=== PATIENT | male | born 1965 | race Caucasian/White ===

== ENCOUNTER 2018-02-27 10:42 | Emergency (ER) | payer OTHER ==
--- NOTE | 2018-02-27 12:19 | ED Physician Documentation ---
PD HPI ABD PAIN - Stated complaint Stated Complaint: RT SIDE PX - Chief complaint Chief Complaint: Back Pain - History obtained from History obtained from: Patient - History of Present Illness Timing - onset: Today (at 0730 had RLQ pain radiating to low back on the right. Feels like stabbing. Assoc with nausea and vomiting x1. No urinary or bowel sx. Had chills. Improved with standing, worse with sitting.) Review of Systems Constitutional: reports: Chills, Sweats. denies: Fever Eyes: reports: Reviewed and negative Nose: reports: Reviewed and negative Cardiac: reports: Reviewed and negative Respiratory: reports: Reviewed and negative GI: reports: Abdominal Pain, Nausea, Vomiting. denies: Constipation, Diarrhea, Hematemesis PD PAST MEDICAL HISTORY - Past Medical History Past Medical History: Yes Cardiovascular: Hypertension Endocrine/Autoimmune: Type 2 diabetes - Present Medications Home Medications: Ambulatory Orders Medication Instructions Recorded Confirmed Meloxicam [Mobic] 7.5 mg PO BIDWM PRN #15 tablet 02/27/18 Oxycodone HCl/Acetaminophen 1 - 2 tab PO Q4H PRN #15 tablet 02/27/18 [Percocet 5-325 mg Tablet] Tamsulosin [Flomax] 0.4 mg PO DAILY #14 capsule 02/27/18 - Allergies Allergies/Adverse Reactions: Allergies Allergy/AdvReac Type Severity Reaction Status Date / Time codeine AdvReac Severe Anaphylaxis Verified 02/27/18 12:27 - Family History Family history: reports: Non contributory PD ED PE NORMAL - Vitals Vital signs reviewed: Yes - General General: Alert and oriented X 3, Other (appears uncomfortable, sweaty) - HEENT HEENT: PERRL, EOMI - Neck Neck: Supple, no meningeal sign, No bony TTP - Cardiac Cardiac: RRR, No murmur - Respiratory Respiratory: No respiratory distress, Clear bilaterally - Abdomen Abdomen: Normal bowel sounds, Soft, Other (TTP RUQ) - Back Back: No CVA TTP, No spinal TTP - Derm Derm: Normal color, Warm and dry - Extremities Extremities: No edema, No calf tenderness / cord - Neuro Neuro: Alert and oriented X 3, Normal speech - Psych Psych: Normal mood, Normal affect Results - Vitals Vitals: Vital Signs - 24 hr 02/27/18 02/27/18 11:00 12:16 Temperature 29.5 C L 34.5 C L Heart Rate 50 L 52 L Respiratory 20 16 Rate Blood Pressure 121/68 137/78 H O2 Saturation 98 99 Oxygen O2 Source Room air - Labs Labs: Laboratory Tests 02/27/18 02/27/18 02/27/18 12:15 12:47 12:47 WBC 8.1 RBC 4.71 Hgb 14.2 Hct 41.7 L MCV 88.5 MCH 30.1 MCHC 34.0 RDW 13.4 Plt Count 227 MPV 6.8 L Neut # 6.8 H Lymph # 0.7 L [place] # 0.5 Eos # 0.1 Baso # 0.0 Absolute Nucleated RBC 0.00 Nucleated RBC % 0.0 Sodium 138 Potassium 4.3 Chloride 101 Carbon Dioxide 27 Anion Gap 10.0 BUN 19 Creatinine 0.9 Estimated GFR (MDRD) 89 Glucose 170 H POC Whole Bld Glucose 151 H Calcium 9.2 Total Bilirubin 0.7 AST 27 ALT 31 Alkaline Phosphatase 55 Total Protein 7.8 Albumin 4.6 Globulin 3.2 Albumin/Globulin Ratio 1.4 Lipase 25 Urine Color Urine Clarity Urine pH Ur Specific [place] Urine Protein Urine Glucose (UA) Urine Ketones Urine Occult Blood Urine Nitrite Urine Bilirubin Urine Urobilinogen Ur Leukocyte Esterase Ur Microscopic Review Urine Culture Comments 02/27/18 14:26 WBC RBC Hgb Hct MCV MCH MCHC RDW Plt Count MPV Neut # Lymph # [place] # Eos # Baso # Absolute Nucleated RBC Nucleated RBC % Sodium Potassium Chloride Carbon Dioxide Anion Gap BUN Creatinine Estimated GFR (MDRD) Glucose POC Whole Bld Glucose Calcium Total Bilirubin AST ALT Alkaline Phosphatase Total Protein Albumin Globulin Albumin/Globulin Ratio Lipase Urine Color YELLOW Urine Clarity CLEAR Urine pH 6.0 Ur Specific [place] 1.025 Urine Protein NEGATIVE Urine Glucose (UA) NEGATIVE Urine Ketones NEGATIVE Urine Occult Blood MODERATE H Urine Nitrite NEGATIVE Urine Bilirubin NEGATIVE Urine Urobilinogen 0.2 (NORMAL) Ur Leukocyte Esterase NEGATIVE Ur Microscopic Review INDICATED Urine Culture Comments Not Reportable - Rads (name of study) CT KUB Radiology: EMP read contemporaneously (1 x 3 mm right proximal ureteral stone with hydronephrosis.) PD MEDICAL DECISION MAKING - ED course ED course: 52-year-old gentleman with acute onset pain consistent with renal colic which is proven on CT. Pain improved after morphine and gone after Toradol. Departure - Departure Disposition: 01 Home, Self Care Clinical Impression: Renal colic on right side Condition: Good Record reviewed to determine appropriate education?: Yes Instructions: ED Stone Renal W Colic Prescriptions: Meloxicam [Mobic] 7.5 mg PO BIDWM PRN #15 tablet PRN Reason: Pain Oxycodone HCl/Acetaminophen [Percocet 5-325 mg Tablet] 1 - 2 tab PO Q4H PRN #15 tablet PRN Reason: Pain Tamsulosin [Flomax] 0.4 mg PO DAILY #14 capsule Comments: Call your doctor to arrange a follow-up appointment, make the next available appointment. In the interim, return anytime if worse or if new symptoms develop. Do not drink or drive while taking narcotic pain medication. Note that many narcotic pain relievers also contain Tylenol/acetaminophen. Please ensure that your total dose of acetaminophen from all sources does not exceed 3 g (3000 mg) per day. You may get constipated while on this medication. Take a stool softener such as Colace twice a day while you are on it. Also add an [id number] laxative such as senna or MiraLAX on any day that you do not have a bowel movement. If you received a narcotic pain medication or sedative while in the emergency department, do not drive for the next 24 hours. Your blood pressure was elevated today on check into the emergency department. This does not mean that you have hypertension, it is a common phenomenon to come to the emergency department and have elevated blood pressure. I recommend that you see your primary care physician within the week to have it rechecked when you are feeling better.
[2018-02-27] MEDS ORDERED: MORPHINE 10 MG/ML VIAL IVP STA (12:22)
[2018-02-27] MEDS ORDERED: ONDANSETRON 4 MG/2 ML VIAL IVP STA (12:23)
[2018-02-27] MEDS ORDERED: HYDROmorphone 2 MG/ML VIAL IVP STA (12:26)
[2018-02-27 12:56] LABS: BASOPHILS % (AUTO) 0.3 %; EOSINOPHILS # (AUTO) 0.1 10^3/uL (0.0-0.7); EOSINOPHILS % (AUTO) 1.2 %; HGB - HEMOGLOBIN 14.2 g/dL (14.0-18.0); LYMPHOCYTES # (AUTO) 0.7 10^3/uL (1.5-3.5); LYMPHOCYTES % (AUTO) 8.1 %; MEAN CORPUSCULAR HEMOGLOBIN 30.1 pg (27.0-31.0); MEAN CORPUSCULAR VOLUME 88.5 fL (80.0-94.0); MEAN PLATELET VOLUME 6.8 fL (7.4-11.4); MONOCYTES # (AUTO) 0.5 10^3/uL (0.0-1.0); MONOCYTES % (AUTO) 6.7 %; NEUTROPHILS # (AUTO) 6.8 10^3/uL (1.5-6.6); NEUTROPHILS % (AUTO) 83.7 %; PLT - PLATELET COUNT 227 10^3/uL (130-450); RED BLOOD COUNT 4.71 10^6/uL (4.70-6.10); RED CELL DISTRIBUTION WIDTH 13.4 % (12.0-15.0); WHITE BLOOD COUNT 8.1 x10^3/uL (4.8-10.8)
[2018-02-27 13:05] LABS: ALBUMIN 4.6 g/dL (3.2-5.5); ALBUMIN/GLOBULIN RATIO 1.4 (1.0-2.2); BILIRUBIN,TOTAL 0.7 mg/dL (0.2-1.0); CALCIUM 9.2 mg/dL (8.5-10.3); CREATININE 0.9 mg/dL (0.6-1.2); TOTAL PROTEIN 7.8 g/dL (6.7-8.2)
[2018-02-27] MEDS ORDERED: KETOROLAC 60 MG/2 ML VIAL IVP STA (13:33)
--- NOTE | 2018-02-27 14:06 | CT Preliminary Report ---
Exam: CT ABDOMEN/PELVIS W/O IMPRESSION: 1. 1 x 3 mm stone proximal right ureter causing mild obstruction. 2. Left nephrolithiasis. 3. Appendectomy. [facility] SITE ID: [id number]
--- NOTE | 2018-02-27 14:17 | CT Report ---
EXAM: CT ABDOMEN AND PELVIS WITHOUT CONTRAST. EXAM DATE: 02/27/2018 01:23 PM. CLINICAL HISTORY: Right flank pain. COMPARISONS: None. TECHNIQUE: Routine helical CT imaging was performed through the abdomen and pelvis. IV contrast: None . Enteric contrast: No. Reconstructions: Coronal and sagittal. In accordance with CT protocol optimization, one or more of the following dose reduction techniques w ere utilized for this exam: automated exposure control, adjustment of mA and/or KV based on patient s ize, or use of iterative reconstructive technique. FINDINGS: Lung Bases: Unremarkable. Liver: Normal. No masses. Gallbladder/Bile Ducts: Unremarkable. Spleen: Normal. Pancreas: Normal. Adrenal Glands: Normal. Kidneys: 1 x 3 mm stone proximal right ureter at the level L2-L3. Mild right hydronephrosis. Mild right peripe lvic and perirenal edema. Moderate periureteral edema at the level of the stone and mild dilatation s uperiorly. Inferior to the right ureteral stone, right ureter is tiny without additional stones. Several 4 mm and smaller stones in the inferior left calyceal system. No left hydronephrosis. Left ur eter is normal. No renal mass lesions. Peritoneal Cavity/Bowel: Normal. No free fluid, free air or adenopathy. No masses or acute inflammato ry process. Appendectomy. Pelvic Organs: Surgical clips left groin, lateral to the inguinal canal. The bladder and visualized p elvic organs are within normal limits. Vasculature: No aneurysms or other significant abnormality. Bones: No significant abnormality. Other: None. IMPRESSION: 1. 1 x 3 mm stone proximal right ureter causing mild obstruction. 2. Left nephrolithiasis. 3. Appendectomy. [facility] Referring Provider Line: [phone] SITE ID: [id number]
[2018-02-27 14:34] LABS: BILIRUBIN,URINE NEGATIVE (NEGATIVE); GLUCOSE, URINE (UA) NEGATIVE (NEGATIVE); KETONES,URINE (UA) NEGATIVE (NEGATIVE); LEUKOCYTE ESTERASE, URINE NEGATIVE (NEGATIVE); NITRITE,URINE NEGATIVE (NEGATIVE); OCCULT BLOOD,URINE MODERATE (NEGATIVE); PROTEIN,URINE NEGATIVE (NEGATIVE); UROBILINOGEN,URINE 0.2 (NORMAL) E.U./dL (NORMAL)
[2018-02-27 14:35] LABS: CLARITY,URINE CLEAR (CLEAR)
[2018-02-27 14:55] LABS: RBC,URINE TNTC /HPF (0-5); SQUAMOUS EPITHELIAL CELL,UR NONE SEEN (<= Few)
[2018-02-27 14:56] LABS: BACTERIA,URINE None Seen /HPF (None Seen); CRYSTALS,URINE 0-2 Calcium Oxalate /LPF; MUCUS,URINE Few Strands
[2018-02-27 14:59] VITALS: BP 108/70
== END 2018-02-27 15:05 | disposition home or self-care (01) ==
LOC: ED 10:42
DX: N20.2 Calculus of kidney with calculus of ureter (principal); I10 Essential (primary) hypertension; E11.9 Type 2 diabetes mellitus without complications
CPT/HCPCS: 36415; 74176; 80053; 81001; 83690; 85025; 96374; 96375; 99283; 99284; J1170; 81003; 87086

== ENCOUNTER 2019-10-14 17:18 | Emergency (ER) | payer OTHER ==
[2019-10-14 17:45] LABS: BILIRUBIN,URINE NEGATIVE (NEGATIVE); GLUCOSE, URINE (UA) NEGATIVE (NEGATIVE); KETONES,URINE (UA) NEGATIVE (NEGATIVE); LEUKOCYTE ESTERASE, URINE NEGATIVE (NEGATIVE); NITRITE,URINE NEGATIVE (NEGATIVE); OCCULT BLOOD,URINE LARGE (NEGATIVE); PROTEIN,URINE TRACE mg/dL (NEGATIVE); UROBILINOGEN,URINE 1 (NORMAL) E.U./dL (NORMAL)
--- NOTE | 2019-10-14 17:47 | ED Physician Documentation ---
History of Present Illness - Stated complaint Stated Complaint: BLOOD IN URINE - Chief complaint Chief Complaint: General - Additonal information Additional information: This is a 54-year-old female with a history of diabetes who presents with blood in his urine. He has no abdominal pain, no dysuria, no fever, no difficulty urinating, no other symptoms. This began this morning, and has had multiple episodes of bart blood in his urine throughout the day. At times it will clear up to a light pink. He has never had this before. He has never had urinary problems in the past, no history of stones. Review of Systems Constitutional: denies: Fever Nose: denies: Rhinorrhea / runny nose Cardiac: denies: Chest pain / pressure Respiratory: denies: Dyspnea GI: denies: Abdominal Pain : reports: Hematuria Neurologic: denies: Generalized weakness PD PAST MEDICAL HISTORY - Past Medical History Cardiovascular: Hypertension Endocrine/Autoimmune: Type 2 diabetes - Present Medications Home Medications: Ambulatory Orders Medication Instructions Recorded Confirmed Meloxicam [Mobic] 7.5 mg PO BIDWM PRN #15 tablet 02/27/18 Oxycodone HCl/Acetaminophen 1 - 2 tab PO Q4H PRN #15 tablet 02/27/18 [Percocet 5-325 mg Tablet] Tamsulosin [Flomax] 0.4 mg PO DAILY #14 capsule 02/27/18 Ondansetron Odt [Zofran] 4 mg TL Q6H PRN #10 tablet 10/14/19 Oxycodone HCl/Acetaminophen 1 each PO Q6H PRN #7 tablet 10/14/19 [Percocet 5-325 mg Tablet] Tamsulosin [Flomax] 0.4 mg PO DAILY #14 capsule 10/14/19 - Allergies Allergies/Adverse Reactions: Allergies Allergy/AdvReac Type Severity Reaction Status Date / Time codeine AdvReac Severe Anaphylaxis Verified 10/14/19 17:21 PD ED PE NORMAL - Vitals Vital signs reviewed: Yes - General General: Alert and oriented X 3, No acute distress - HEENT HEENT: PERRL - Neck Neck: Supple, no meningeal sign - Cardiac Cardiac: RRR - Respiratory Respiratory: No respiratory distress, Clear bilaterally - Abdomen Abdomen: Normal bowel sounds, Soft, Non tender, Non distended - Male Male : Other (Penis is circumcised, normal in appearance, no active bleeding, no testicular tenderness, no lesions) - Derm Derm: Warm and dry - Extremities Extremities: No deformity - Neuro Neuro: Alert and oriented X 3 - Psych Psych: Normal mood, Normal affect Results - Vitals Vitals: Vital Signs - 24 hr 10/14/19 10/14/19 17:22 19:35 Temperature 36.5 C 36.7 C Heart Rate 91 77 Respiratory 16 17 Rate Blood Pressure 128/71 125/82 H O2 Saturation 96 94 Oxygen O2 Source Room air - Labs Labs: Laboratory Tests 10/14/19 10/14/19 10/14/19 17:40 17:59 17:59 WBC 10.2 RBC 4.82 Hgb 14.8 Hct 42.7 MCV 88.6 MCH 30.7 MCHC 34.7 RDW 12.7 Plt Count 334 MPV 8.2 Neut # (Auto) 6.8 H Lymph # (Auto) 2.3 [place] # (Auto) 0.8 Eos # (Auto) 0.2 Baso # (Auto) 0.1 Absolute Nucleated RBC 0.00 Nucleated RBC % 0.0 Sodium 138 Potassium 3.6 Chloride 101 Carbon Dioxide 23 Anion Gap 14.0 H BUN 24 H Creatinine 0.7 Estimated GFR (MDRD) 118 Glucose 115 H Calcium 9.8 Total Bilirubin 0.5 AST 32 ALT 52 Alkaline Phosphatase 61 Total Protein 7.8 Albumin 4.7 Globulin 3.1 Albumin/Globulin Ratio 1.5 Lipase 28 Urine Color DARK YELLOW Urine Clarity CLOUDY Urine pH 7.0 Ur Specific [place] 1.020 Urine Protein TRACE Urine Glucose (UA) NEGATIVE Urine Ketones NEGATIVE Urine Occult Blood LARGE H Urine Nitrite NEGATIVE Urine Bilirubin NEGATIVE Urine Urobilinogen 1 (NORMAL) Ur Leukocyte Esterase NEGATIVE Urine RBC TNTC H Urine WBC 0-3 Ur Squamous Epith Cells NONE SEEN Urine Bacteria None Seen Ur Microscopic Review INDICATED Urine Culture Comments NOT INDICATED - Rads (name of study) CT abd/pelvis Radiology: Other (Nonobstructing 4 mm stone in the left ureteropelvic junction, inferior left kidney 1 and 2 mm nonobstructing calyceal stones) PD MEDICAL DECISION MAKING - ED course Complexity details: considered differential (Infection, mass, malignancy, stone, urethritis) ED course: On arrival patient is well-appearing, his abdomen is completely nontender, and he is asymptomatic. His urine has gross hematuria, his urinalysis shows too many red blood cells to count, no white blood cells or signs of infection. His CBC is unremarkable, and his CMP is unremarkable as well, with a normal creatinine. CT scan of his abdomen/pelvis was performed with contrast to assess for malignancy or other cause of his bleeding, and it shows a nonobstructing 4 mm stone in the left ureteropelvic junction. This appears to be the likely cause of his bleeding, and appears it is not causing him pain. I discussed this result with him and the fact that he probably will have some symptoms as he passed the stone, I discussed pain management, nausea management, fluids, and follow-up. I also discussed return precautions including any fever, inability to urinate, or other concerning symptoms. Patient agreed and was discharged home. Departure - Departure Disposition: 01 Home, Self Care Clinical Impression: Kidney stone Condition: Good Prescriptions: Ondansetron Odt [Zofran] 4 mg TL Q6H PRN #10 tablet PRN Reason: Nausea / Vomiting Oxycodone HCl/Acetaminophen [Percocet 5-325 mg Tablet] 1 each PO Q6H PRN #7 tablet PRN Reason: pain Tamsulosin [Flomax] 0.4 mg PO DAILY #14 capsule Comments: You have a 4 mm stone in your left ureter, which is the likely cause of your bleeding in your urine. You may pass the stone, and as it moves it could cause significant pain. You may use ibuprofen and that is not effective Percocet for pain. I am also prescribing you some Zofran for nausea in case you develop nausea and vomiting. You should follow-up with your primary care provider to ensure that you are not having continued blood in your urine after the stone is passed. If you are having worsening symptoms such as severe abdominal pain not controlled by medications, fever, inability to urinate or any other concerning symptoms return to the emergency department. Your CT scan did show a little bit of fatty liver, please review this finding with your primary care provider. Discharge Date/Time: 10/14/19 19:38
[2019-10-14 17:51] LABS: CLARITY,URINE CLOUDY (CLEAR)
[2019-10-14 17:52] LABS: BACTERIA,URINE None Seen /HPF (None Seen); RBC,URINE TNTC /HPF (0-5); SQUAMOUS EPITHELIAL CELL,UR NONE SEEN (<= Few)
[2019-10-14 18:03] LABS: BASOPHILS # (AUTO) 0.1 10^3/uL (0.0-0.1); BASOPHILS % (AUTO) 0.9 %; EOSINOPHILS # (AUTO) 0.2 10^3/uL (0.0-0.7); EOSINOPHILS % (AUTO) 1.6 %; HGB - HEMOGLOBIN 14.8 g/dL (14.0-18.0); LYMPHOCYTES # (AUTO) 2.3 10^3/uL (1.5-3.5); LYMPHOCYTES % (AUTO) 22.7 %; MEAN CORPUSCULAR HEMOGLOBIN 30.7 pg (27.0-31.0); MEAN CORPUSCULAR HGB CONC 34.7 g/dL (32.0-36.0); MEAN CORPUSCULAR VOLUME 88.6 fL (80.0-94.0); MEAN PLATELET VOLUME 8.2 fL (7.4-11.4); MONOCYTES # (AUTO) 0.8 10^3/uL (0.0-1.0); MONOCYTES % (AUTO) 7.7 %; NEUTROPHILS # (AUTO) 6.8 10^3/uL (1.5-6.6); NEUTROPHILS % (AUTO) 66.6 %; PLT - PLATELET COUNT 334 10^3/uL (130-450); RED BLOOD COUNT 4.82 10^6/uL (4.70-6.10); RED CELL DISTRIBUTION WIDTH 12.7 % (12.0-15.0); WHITE BLOOD COUNT 10.2 x10^3/uL (4.8-10.8)
[2019-10-14 18:17] LABS: ALBUMIN 4.7 g/dL (3.2-5.5); ALBUMIN/GLOBULIN RATIO 1.5 (1.0-2.2); BILIRUBIN,TOTAL 0.5 mg/dL (0.2-1.0); CALCIUM 9.8 mg/dL (8.5-10.3); CREATININE 0.7 mg/dL (0.6-1.2); TOTAL PROTEIN 7.8 g/dL (6.7-8.2)
[2019-10-14] MEDS ORDERED: IOVERSOL 320 100 ML VIAL IVP ONE ×2 (18:23→18:43)
--- NOTE | 2019-10-14 19:13 | CT Report ---
Reason: gross hematuria Procedure Date: 10/14/2019 Accession Number: [id number] / [id number] Procedure: CT - Abdomen/Pelvis W CPT Code: Final Report FULL RESULT: EXAM: CT ABDOMEN AND PELVIS EXAM DATE: 10/14/2019 06:41 PM. CLINICAL HISTORY: Gross hematuria. COMPARISONS: ABDOMEN/PELVIS W/O 02/27/2018 1:19 PM. TECHNIQUE: Routine helical CT imaging was performed through the abdomen and pelvis. IV contrast: OPTI 320 100ML. Enteric contrast: No. Reconstructions: Coronal and sagittal. In accordance with CT protocol optimization, one or more of the following dose reduction techniques were utilized for this exam: automated exposure control, adjustment of mA and/or KV based on patient size, or use of iterative reconstructive technique. FINDINGS: Lung Bases: Fatty infiltration of the liver. The liver is negative for focal mass or intrahepatic biliary dilatation. Liver: Fatty infiltration of the liver. The liver is negative for focal mass or intrahepatic biliary dilatation. Gallbladder/Bile Ducts: Unremarkable. Spleen: Normal. Pancreas: Normal. Adrenal Glands: Normal. Kidneys: Left kidney 2 mm nonobstructing calyceal stone. Inferior left kidney 1 mm calyceal stone. Focal scar superior lateral right kidney. 4 mm stone left ureteropelvic junction. Negative for hydroureter. Negative for obstructing ureteral stone. Peritoneal Cavity/Bowel: Normal. No free fluid, free air or adenopathy. No masses or acute inflammatory process. The appendix is well visualized and normal. Pelvic Organs: Normal. The bladder and visualized pelvic organs are within normal limits. Vasculature: No aneurysms or other significant abnormality. Bones: No significant abnormality. Other: Moderate bilateral inguinal hernias containing fat. IMPRESSION: 1. Nonobstructing 4 mm stone left ureteropelvic junction. 2. Inferior left kidney 1 mm and 2 mm nonobstructing calyceal stones. [facility]
[2019-10-14 19:36] VITALS: BP 125/82
== END 2019-10-14 19:38 | disposition home or self-care (01) ==
LOC: ED 17:18
DX: N20.2 Calculus of kidney with calculus of ureter (principal); R31.0 Gross hematuria; I10 Essential (primary) hypertension; E11.9 Type 2 diabetes mellitus without complications
CPT/HCPCS: 36415; 74177; 80053; 81001; 83690; 85025; 99283; 99284; Q9967; 81003; 87086

== ENCOUNTER 2020-03-30 08:39 | Emergency (ER) | payer OTHER ==
[2020-03-30 09:39] LABS: BILIRUBIN,URINE NEGATIVE (NEGATIVE); GLUCOSE, URINE (UA) NEGATIVE (NEGATIVE); KETONES,URINE (UA) NEGATIVE (NEGATIVE); LEUKOCYTE ESTERASE, URINE NEGATIVE (NEGATIVE); NITRITE,URINE NEGATIVE (NEGATIVE); OCCULT BLOOD,URINE LARGE (NEGATIVE); PH,URINE 5.5 PH (5.0-7.5); PROTEIN,URINE NEGATIVE (NEGATIVE); UROBILINOGEN,URINE 0.2 (NORMAL) E.U./dL (NORMAL)
[2020-03-30 09:57] LABS: BASOPHILS # (AUTO) 0.1 10^3/uL (0.0-0.1); BASOPHILS % (AUTO) 0.5 %; EOSINOPHILS # (AUTO) 0.1 10^3/uL (0.0-0.7); EOSINOPHILS % (AUTO) 0.6 %; HGB - HEMOGLOBIN 14.5 g/dL (14.0-18.0); LYMPHOCYTES # (AUTO) 1.2 10^3/uL (1.5-3.5); LYMPHOCYTES % (AUTO) 10.9 %; MEAN CORPUSCULAR HEMOGLOBIN 31.1 pg (27.0-31.0); MEAN CORPUSCULAR HGB CONC 34.3 g/dL (32.0-36.0); MEAN CORPUSCULAR VOLUME 90.8 fL (80.0-94.0); MEAN PLATELET VOLUME 8.8 fL (7.4-11.4); MONOCYTES # (AUTO) 0.6 10^3/uL (0.0-1.0); MONOCYTES % (AUTO) 5.8 %; NEUTROPHILS # (AUTO) 8.9 10^3/uL (1.5-6.6); PLT - PLATELET COUNT 254 10^3/uL (130-450); RED BLOOD COUNT 4.66 10^6/uL (4.70-6.10); RED CELL DISTRIBUTION WIDTH 13.2 % (12.0-15.0); WHITE BLOOD COUNT 10.9 x10^3/uL (4.8-10.8)
[2020-03-30 09:59] LABS: CLARITY,URINE CLEAR (CLEAR)
[2020-03-30 10:09] LABS: BACTERIA,URINE Rare /HPF (None Seen); SQUAMOUS EPITHELIAL CELL,UR NONE SEEN (<= Few)
[2020-03-30 10:11] LABS: ALBUMIN 4.9 g/dL (3.2-5.5); ALBUMIN/GLOBULIN RATIO 1.7 (1.0-2.2); BILIRUBIN,TOTAL 0.4 mg/dL (0.2-1.0); CALCIUM 9.3 mg/dL (8.5-10.3); TOTAL PROTEIN 7.8 g/dL (6.7-8.2)
[2020-03-30] MEDS ORDERED: SODIUM CHLORIDE 0.9% 1,000 ML IV STA (10:19)
[2020-03-30] MEDS ORDERED: HYDROmorphone 1 MG/ML CARPUJECT IVP STA (10:19)
[2020-03-30] MEDS ORDERED: KETOROLAC 30 MG/ML VIAL IVP STA (10:19)
--- NOTE | 2020-03-30 11:21 | ED Physician Documentation ---
History of Present Illness - Stated complaint Stated Complaint: L SIDE ABD/BACK PX - Chief complaint Chief Complaint: Abd Pain - History obtained from History obtained from: Patient - Additonal information Additional information: Patient comes emergency department complaining of left flank pain that began last night. He states he has a history of kidney stones and that this feels the same. He has not noticed any dysuria or bart blood in his urine.No other complaints at this time. He states that the symptoms feel exactly the same as what he has had before. Patient first got States that he has not had any fevers. He had some nausea when his pain was maximal, but this seems to be better now. Diagnosed with kidney stones about a year and a half ago and has had one other episode between then and now. He is not sure if he ever passed the stones because he did not notice a stone in the toilet bowl and did not use a strainer. No other complaints at this time. Review of Systems Ten Systems: 10 systems reviewed and negative Constitutional: reports: Reviewed and negative Eyes: reports: Reviewed and negative Ears: reports: Reviewed and negative Nose: reports: Reviewed and negative Throat: reports: Reviewed and negative Cardiac: reports: Reviewed and negative Respiratory: reports: Reviewed and negative GI: reports: Abdominal Pain : reports: Reviewed and negative Skin: reports: Reviewed and negative Musculoskeletal: reports: Reviewed and negative Neurologic: reports: Reviewed and negative Psychiatric: reports: Reviewed and negative Endocrine: reports: Reviewed and negative Immunocompromised: reports: Reviewed and negative PD PAST MEDICAL HISTORY - Past Medical History Cardiovascular: Hypertension Endocrine/Autoimmune: Type 2 diabetes - Present Medications Home Medications: Ambulatory Orders Medication Instructions Recorded Confirmed Meloxicam [Mobic] 7.5 mg PO BIDWM PRN #15 tablet 02/27/18 Oxycodone HCl/Acetaminophen 1 - 2 tab PO Q4H PRN #15 tablet 02/27/18 [Percocet 5-325 mg Tablet] Tamsulosin [Flomax] 0.4 mg PO DAILY #14 capsule 02/27/18 Ondansetron Odt [Zofran] 4 mg TL Q6H PRN #10 tablet 10/14/19 Oxycodone HCl/Acetaminophen 1 each PO Q6H PRN #7 tablet 10/14/19 [Percocet 5-325 mg Tablet] Tamsulosin [Flomax] 0.4 mg PO DAILY #14 capsule 10/14/19 Hydrocodone/Acetaminophen 1 - 2 each PO Q6H PRN #14 tablet 03/30/20 [Hydrocodon-Acetaminophen 5-325] Ondansetron Odt [Zofran] 4 mg TL Q6H PRN #10 tablet 03/30/20 - Allergies Allergies/Adverse Reactions: Allergies Allergy/AdvReac Type Severity Reaction Status Date / Time codeine AdvReac Severe Anaphylaxis Verified 03/30/20 08:48 - Social History Does the pt smoke?: No Smoking Status: Never smoker PD ED PE NORMAL - Vitals Vital signs reviewed: Yes - General General: Alert and oriented X 3, Well developed/nourished (Patient appears moderately uncomfortable, pacing around the room but otherwise in no apparent distress) - HEENT HEENT: Atraumatic, PERRL, EOMI, Moist mucous membranes - Neck Neck: Supple, no meningeal sign - Cardiac Cardiac: RRR, No murmur - Respiratory Respiratory: No respiratory distress, Clear bilaterally - Abdomen Abdomen: Soft, Non distended, Other (Patient has moderate tenderness of his left flank and CVA area.) - Back Back: Other (Left CVA tenderness.) - Derm Derm: Normal color, Warm and dry, No rash - Extremities Extremities: No deformity, No edema, No calf tenderness / cord - Neuro Neuro: Alert and oriented X 3, Other (Grossly normal) - Psych Psych: Normal mood, Normal affect Results - Vitals Vitals: Vital Signs - 24 hr 03/30/20 03/30/20 11:00 11:49 Heart Rate 67 77 Respiratory 16 18 Rate Blood Pressure 119/70 113/66 O2 Saturation 94 96 Oxygen O2 Source Room air - Labs Labs: Laboratory Tests 03/30/20 03/30/20 03/30/20 09:31 09:40 09:40 WBC 10.9 H RBC 4.66 L Hgb 14.5 Hct 42.3 MCV 90.8 MCH 31.1 H MCHC 34.3 RDW 13.2 Plt Count 254 MPV 8.8 Neut # (Auto) 8.9 H Lymph # (Auto) 1.2 L [place] # (Auto) 0.6 Eos # (Auto) 0.1 Baso # (Auto) 0.1 Absolute Nucleated RBC 0.00 Nucleated RBC % 0.0 Sodium 135 Potassium 4.5 Chloride 100 L Carbon Dioxide 24 Anion Gap 11.0 BUN 27 H Creatinine 1.0 Estimated GFR (MDRD) 78 L Glucose 159 H Calcium 9.3 Total Bilirubin 0.4 AST 22 ALT 27 Alkaline Phosphatase 67 Total Protein 7.8 Albumin 4.9 Globulin 2.9 Albumin/Globulin Ratio 1.7 Lipase 32 Urine Color YELLOW Urine Clarity CLEAR Urine pH 5.5 Ur Specific [place] >=1.030 H Urine Protein NEGATIVE Urine Glucose (UA) NEGATIVE Urine Ketones NEGATIVE Urine Occult Blood LARGE H Urine Nitrite NEGATIVE Urine Bilirubin NEGATIVE Urine Urobilinogen 0.2 (NORMAL) Ur Leukocyte Esterase NEGATIVE Urine RBC 6-10 H Urine WBC 0-3 Ur Squamous Epith Cells NONE SEEN Urine Bacteria Rare Ur Microscopic Review INDICATED Urine Culture Comments NOT INDICATED - Rads (name of study) CT abd/pelvis Radiology: Final report received, EMP read indepedently, See rad report PD MEDICAL DECISION MAKING - ED course Complexity details: reviewed results, re-evaluated patient, considered differential, d/w patient ED course: Patient was worked up with labs, urinalysis, and ultimately, noncontrast CT of the abdomen and pelvis. Labs had shown significant amount of blood in the urine without infection. He was treated symptomatically with IV fluids, Toradol, and Dilaudid, after which he felt much better. He was found to have a stone at the UVJ on the L. Recommended urology follow-up. We have discussed symptomatic treatment at home, as well as the usual indications for return. Departure - Departure Disposition: 01 Home, Self Care Clinical Impression: Kidney stone on left side Condition: Stable Instructions: ED Stone Renal W Colic Prescriptions: Hydrocodone/Acetaminophen [Hydrocodon-Acetaminophen 5-325] 1 - 2 each PO Q6H PRN #14 tablet PRN Reason: pain Ondansetron Odt [Zofran] 4 mg TL Q6H PRN #10 tablet PRN Reason: Nausea / Vomiting Comments: Your CT scan shows a left-sided kidney stone that is just about to pass into your bladder. This should pass on its own without trouble over the next few hours to few days. Occasionally, it can take a week or 2 for the stone to pass, but this is unlikely, since it has already made it this far. You may notice some pain again when the stone is passing anterior bladder, which is to be expected. He may take the pain and nausea medication, as needed. Please drink plenty of fluids to assist in the process of passage. If you develop fevers, or if you continue to have pain to the point where you cannot hold your medications down, then please return to the emergency department. Otherwise, you may follow-up with urology in [facility]. Please call [phone] to make an appointment. Discharge Date/Time: 03/30/20 12:05
[2020-03-30 11:56] VITALS: BP 113/66
--- NOTE | 2020-03-30 11:58 | CT Report ---
PROCEDURE: Abdomen/Pelvis WO INDICATIONS: flank pain, hematuria TECHNIQUE: Noncontrast 5 mm thick sections acquired from the diaphragms to the symphysis. 5 mm coronal and sagi ttal reformats were then performed. For radiation dose reduction, the following was used: automated exposure control, adjustment of mA and/or kV according to patient size. COMPARISON: 10/14/2019 and 02/27/2018. FINDINGS: Image quality: Excellent. ABDOMEN: Lung bases: Lung bases are clear. Heart size is normal. Solid organs: Liver and spleen are normal in size. Gallbladder is within normal limits Pancreas is normal in contours. No adrenal nodules. Left kidney is slightly enlarged with moderate left perinephric fat stranding. Moderately distended l eft renal collecting system and left ureter is seen extending to the level of left UVJ. 6 mm stone is noted at left distal ureter just proximal to UVJ. No right-sided renal stone or hydronephrosis. Peritoneum and bowel: Unenhanced bowel loops demonstrate normal wall thickness and caliber. No free fluid or air. No evidence of acute appendicitis or diverticulitis. Nodes and vessels: No retroperitoneal or mesenteric adenopathy by size criteria. Aorta and inferior vena cava are normal in caliber. Miscellaneous: Small umbilical hernia is seen containing fat only. PELVIS: Genitourinary: Bladder wall thickness is normal. Miscellaneous: No inguinal hernias or adenopathy. Bones: No suspicious bony lesions. No vertebral body compression fractures. IMPRESSION: 1. 6 mm left distal ureteral stone just proximal to left UVJ with moderate left-sided hydronephrosis and hydroureter and moderate left perinephric fat stranding. 2. No right-sided renal stone or hydronephrosis. 3. No bowel obstruction. No abnormal bowel wall thickening. No free fluid or free air. Reviewed by: James Francis MD on 03/30/2020 11:57 AM PDT Approved by: James Francis MD on 03/30/2020 11:57 AM PDT Station ID: [id number]
== END 2020-03-30 12:05 | disposition home or self-care (01) ==
LOC: ED 08:39
DX: N13.2 Hydronephrosis with renal and ureteral calculous obstruction (principal); I10 Essential (primary) hypertension; E11.9 Type 2 diabetes mellitus without complications
CPT/HCPCS: 36415; 74176; 80053; 81001; 83690; 85025; 96361; 96374; 99284; J1170; 81003; 87086